=== PATIENT | female | born 1980 | race Caucasian/White ===

== ENCOUNTER 2018-01-01 13:35 | Outpatient (CLI) | payer OTHER ==
--- NOTE | 2018-01-02 07:33 | XRAY Report ---
Procedure Date: 01/01/2018 Accession Number: [id number] / [id number] Procedure: XRS - Femur 2V LT CPT Code: FULL RESULT: EXAM: Femur 2V LT DATE: 01/01/2018 2:04 PM CLINICAL HISTORY: LT. LEG PAIN COMPARISON: None. TECHNIQUE: 2 views. FINDINGS: Bones: Normal. No fracture or bone lesion. Joints: The visualized hip and knee joints are normal. Soft Tissues: Normal. No soft tissue swelling. IMPRESSION: Normal femur radiography. [facility]
== END 2018-01-01 13:36 | disposition home or self-care (01) ==
LOC: DI.S 13:35
PROVIDERS: ATTEND Family Medicine
DX: M79.605 Pain in left leg (principal)

== ENCOUNTER → 2018-05-04 | Outpatient (CLI) | payer OTHER ==
[2018-05-04 17:50] LABS: ALBUMIN 4.4 g/dL (3.2-5.5); ALBUMIN/GLOBULIN RATIO 1.6 (1.0-2.2); ALKALINE PHOSPHATASE 51 IU/L (42-121); ALT ALANINE AMINOTRANSFERASE 14 IU/L (10-60); AST ASPARTATE AMINOTRANSFERASE 20 IU/L (10-42); BILIRUBIN,TOTAL 0.7 mg/dL (0.2-1.0); BUN - BLOOD UREA NITROGEN 14 mg/dL (6-20); CALCIUM 8.9 mg/dL (8.5-10.3); CARBON DIOXIDE - CO2 27 mmol/L (21-32); CHLORIDE 103 mmol/L (101-111); CHOLESTEROL 202 mg/dL; CREATININE 0.6 mg/dL (0.4-1.0); GFR - MDRD 112 (>89); GLUCOSE 91 mg/dL (70-100); HDL CHOLESTEROL 67 mg/dL; LDL CHOLESTEROL,CALCULATED 125 mg/dL; LDL/HDL RATIO 1.9 (<4.4); SODIUM 137 mmol/L (135-145); TOTAL PROTEIN 7.2 g/dL (6.7-8.2); VLDL CHOLESTEROL 10 mg/dL
== END ==
LOC: LAB.S 10:31
PROVIDERS: ATTEND Nurse Practitioner Family
DX: Z13.1 Encounter for screening for diabetes mellitus (principal); Z13.220 Encounter for screening for lipoid disorders
CPT/HCPCS: 36415; 80053; 80061; 83721; 84443

== ENCOUNTER 2018-05-10 11:53 | Outpatient (CLI) | payer OTHER ==
--- NOTE | 2018-05-11 09:00 | Ultrasound Report ---
Reason: THYROID NODULE,RIGHT Procedure Date: 05/10/2018 Accession Number: [id number] / [id number] Procedure: US - Head or Neck Soft Tissue CPT Code: FULL RESULT: EXAM: THYROID ULTRASOUND EXAM DATE: 05/10/2018 12:51 PM. CLINICAL HISTORY: THYROID Nodule, right. COMPARISON: None. TECHNIQUE: Real time sonographic imaging of the thyroid was performed by the porcelain enamel repairer. Multiple medical device sales representative static images were saved for review. FINDINGS: THYROID GLAND: Right Lobe: 5.3 x 1.6 x 1.5 cm, volume 7 cc. Normal background echotexture. Right Lobe Nodules: None. Left Lobe: 4.6 x 1.4 x 1.3 cm, volume 4 cc. Normal background echotexture. Left Lobe Nodules: There is a 3 mm simple appearing cyst in the mid to lower lobe. Isthmus: 0.4 cm AP. Isthmic Nodules: None. LYMPH NODES: No adenopathy demonstrated in the central or lateral compartment. IMPRESSION: No suspicious thyroid nodules. 3 mm simple appearing cyst of the left lobe. Otherwise normal appearance of the thyroid. Management recommendations are based on 2015 [place] [employer] Management Guidelines for Adult Patients with Thyroid Nodules and Differentiated Thyroid Cancer. [facility]
== END 2018-05-10 11:54 | disposition home or self-care (01) ==
LOC: DI 11:53
PROVIDERS: ATTEND Nurse Practitioner Family
DX: E04.1 Nontoxic single thyroid nodule (principal)
CPT/HCPCS: 76536

== ENCOUNTER 2018-06-01 08:00 | Outpatient (CLI) | payer OTHER ==
[2018-06-01 18:03] LABS: HGB - HEMOGLOBIN 14.1 g/dL (12.0-16.0); MEAN CORPUSCULAR HEMOGLOBIN 30.5 pg (27.0-31.0); MEAN CORPUSCULAR HGB CONC 32.5 g/dL (32.0-36.0); MEAN CORPUSCULAR VOLUME 93.8 fL (81.0-99.0); MEAN PLATELET VOLUME 8.3 fL (7.9-10.8); RED BLOOD COUNT 4.62 10^6/uL (4.20-5.40); RED CELL DISTRIBUTION WIDTH 13.1 % (12.0-15.0); WHITE BLOOD COUNT 4.6 x10^3/uL (4.8-10.8)
[2018-06-01 18:27] LABS: CRP - C-REACTIVE PROTEIN < 1.0 mg/dL (0-1.0)
[2018-06-01 18:38] LABS: URIC ACID 4.4 mg/dL (2.6-7.2)
[2018-06-01 19:30] LABS: RHEUMATOID FACTOR NEGATIVE (Negative)
[2018-06-03 17:46] LABS: ANA SCREEN POSITIVE (NEGATIVE)
[2018-06-03 19:21] LABS: CYCLIC CITRULL PEPTIDE CCP IGG <16 UNITS
== END 2018-06-01 08:01 | disposition home or self-care (01) ==
LOC: LAB.S 08:00
PROVIDERS: ATTEND Nurse Practitioner Family
DX: E04.1 Nontoxic single thyroid nodule (principal); Z83.49 Family history of other endocrine, nutritional and metabolic diseases; M25.50 Pain in unspecified joint; Z82.61 Family history of arthritis
CPT/HCPCS: 36415; 84439; 84481; 84550; 85027; 85651; 86038; 86140; 86200; 86430; 86800

== ENCOUNTER 2018-11-19 16:09 | Outpatient (CLI) | payer OTHER ==
--- NOTE | 2018-11-19 16:57 | Mammography Report ---
Reason: SCREENING MAMMO Procedure Date: 11/19/2018 Accession Number: [id number] / [id number] Procedure: [facility] - Screening Mammo w/Ayo CPT Code: FULL RESULT: EXAM: Screening Mammo w/Ayo DATE: 11/19/2018 4:43 PM CLINICAL HISTORY: Baseline screening. No reported personal or family history of breast cancer. TECHNIQUE: (B) - Bilateral CC and MLO views were obtained. COMPARISON: None PARENCHYMAL PATTERN: (D) - The breasts demonstrate heterogeneously dense fibroglandular parenchyma bilaterally. FINDINGS: Right breast: There is a 10 mm oval mass with mostly circumscribed margins in the 10:00 breast, 9 cm from the nipple. There are no suspicious calcifications or areas of distortion. Left breast: There is a 14 mm oval mass with circumscribed margins in the retroareolar breast 3 cm deep to the nipple. There are no suspicious calcifications or areas of distortion. IMPRESSION: Right breast: 10 mm oval mass with circumscribed margins posterior 10:00 breast 9 cm from nipple. Incomplete. BI-RADS Category 0. Targeted ultrasound is recommended. Left breast: 14 mm oval mass with circumscribed margins retroareolar breast. Incomplete. BI-RADS Category 0. Targeted ultrasound is recommended. RECOMMENDATION: (ADDUS) - Targeted ultrasound recommended. Bilateral. BI-RADS CATEGORY: (0) - Incomplete Examination - need additional evaluation. STANDARD QUALIFYING STATEMENTS: 1. This examination was not reviewed with the aid of Computer-Aided Detection (CAD). 2. A negative or benign imaging report should not preclude biopsy if clinically suspicious findings are present. 3. Dense breasts may obscure an underlying neoplasm. 4. This examination was reviewed with the aid of 3D breast imaging (tomosynthesis).
== END 2018-11-19 16:10 | disposition home or self-care (01) ==
LOC: DI 16:09
DX: Z12.31 Encounter for screening mammogram for malignant neoplasm of breast (principal); R92.8 Other abnormal and inconclusive findings on diagnostic imaging of breast
CPT/HCPCS: 77063; 77067

== ENCOUNTER 2018-12-03 11:14 | Outpatient (CLI) | payer OTHER ==
--- NOTE | 2018-12-03 13:22 | Ultrasound Report ---
Reason: ABNORMAL MAMMOGRAM Procedure Date: 12/03/2018 Accession Number: [id number] / [id number] Procedure: US - Breast Unilateral Limited CPT Code: FULL RESULT: EXAM: Breast Unilateral Limited, Breast Unilateral Limited DATE: 12/03/2018 12:24 PM CLINICAL HISTORY: ABNORMAL MAMMOGRAM for follow-up COMPARISON: 11/19/2018 TECHNIQUE: Targeted ultrasound was performed of the bilateral breasts in the area of clinical concern at 10:00 o'clock and 9 cm distance from the nipple right breast and left breast retroareolar region. Color Doppler was employed as appropriate. FINDINGS: Right breast: At the 10:00 position 9 cm from the nipple there is a cluster of cysts measuring 1 x 0.6 x 1.2 cm.. No solid mass is seen. This accounts for the mammographic finding. Left breast: In the retroareolar left breast there is a simple cyst 1.2 x 0.6 x 1.5 cm accounting for the mammographic finding. No solid mass is seen. IMPRESSION: Benign findings. BI-RADS 2. RECOMMENDATION: Annual routine screening mammography. BIRADS CATEGORY 2: Benign findings [facility]
--- NOTE | 2018-12-03 13:22 | Ultrasound Report ---
Reason: ABNORMAL MAMMOGRAM Procedure Date: 12/03/2018 Accession Number: [id number] / [id number] Procedure: US - Breast Unilateral Limited CPT Code: FULL RESULT: EXAM: Breast Unilateral Limited, Breast Unilateral Limited DATE: 12/03/2018 12:24 PM CLINICAL HISTORY: ABNORMAL MAMMOGRAM for follow-up COMPARISON: 11/19/2018 TECHNIQUE: Targeted ultrasound was performed of the bilateral breasts in the area of clinical concern at 10:00 o'clock and 9 cm distance from the nipple right breast and left breast retroareolar region. Color Doppler was employed as appropriate. FINDINGS: Right breast: At the 10:00 position 9 cm from the nipple there is a cluster of cysts measuring 1 x 0.6 x 1.2 cm.. No solid mass is seen. This accounts for the mammographic finding. Left breast: In the retroareolar left breast there is a simple cyst 1.2 x 0.6 x 1.5 cm accounting for the mammographic finding. No solid mass is seen. IMPRESSION: Benign findings. BI-RADS 2. RECOMMENDATION: Annual routine screening mammography. BIRADS CATEGORY 2: Benign findings [facility]
== END 2018-12-03 11:15 | disposition home or self-care (01) ==
LOC: DI 11:14
PROVIDERS: ATTEND Nurse Practitioner Obstetrics & Gynecology
DX: N60.11 Diffuse cystic mastopathy of right breast (principal); N60.02 Solitary cyst of left breast
CPT/HCPCS: 76642